=== PATIENT | female | born 1965 | race Caucasian/White ===

== ENCOUNTER → 2025-04-12 | Outpatient (CLI) | payer OTHER ==
--- NOTE | 2025-04-12 13:39 | CT ---
EXAMINATION TYPE: CT chest wo/w con DATE OF EXAM: 04/12/2025 1:16 PM COMPARISON: None. CLINICAL INDICATION: Female, 59 years old with history of R05.3 CHRONIC COUGH, chronic cough x3 month s. TECHNIQUE: Axial images were obtained at 5 mm thick sections. Reconstructed images are reviewed on [employer] computer in the coronal plane. Contrast used:100ml mL of Isovue 300 without and with IV Contrast, (none if empty) Oral contrast used: (none if empty) CT DLP: 1430 mGycm, Automated exposure control for dose reduction was used. FINDINGS: Portion of the thyroid visualized is normal. No suspicious lung nodules or focal infiltrates are present. Tracheobronchial tree as visualized is n ormal. No enlarged mediastinal or hilar adenopathy is evident. The ascending aorta diameter at the level o f the main pulmonary artery is 4.0 cm. The main pulmonary artery diameter at the bifurcation is 2.8 cm. No significant coronary artery calcifications. Limited CT sections are obtained through the upper abdomen. There is a small hiatal hernia present. IMPRESSION: 1. No acute pulmonary process. 2. Small hiatal hernia [facility], , 04/12/2025 1:37 PM
== END | disposition home or self-care (01) ==
LOC: RADCTMAIN 12:47
PROVIDERS: ATTEND Family Medicine
DX: K44.9 Diaphragmatic hernia without obstruction or gangrene (principal)
CPT/HCPCS: 71270; Q9967